=== PATIENT | female | born 1990 | race American Indian/Alaskan Native ===

== ENCOUNTER 2016-06-18 19:39 | Emergency (ER) | payer OTHER, MEDICAID ==
[2016-06-18] MEDS ORDERED: HYDROmorphone 1 MG/ML Syringe IM ONE (19:45)
[2016-06-18 19:47] VITALS: BP 144/83
--- NOTE | 2016-06-18 19:47 | EDM.PDOC ---
ED HPI Trauma - General Stated Complaint: POSSIBLE BROKEN RIGHT FOOT Time Seen by Provider: 06/18/16 19:40 Source: Reports: Patient History Limitations: Reports: No limitations - History of Present Illness INITIAL COMMENTS - FREE TEXT/NARRATIVE: c/o severe pain to right ankle, fell while playing volley ball, obvious deformity. Occurred When: just prior to arrival Occurred Where: other Method of Injury: fall Severity: moderate Allergies/ADRs: Allergies No Known Allergies Allergy (Verified 10/05/13 21:13) Home Medications: Ambulatory Orders . [No Known Home Meds] 06/18/16 [Confirmed 06/18/16] Past Medical History - Past Health History Medical/Surgical History: Denies Medical/Surgical History Social & Family History - Tobacco Use Smoking Status *Q: Former Smoker Years of Tobacco use: 5 Used Tobacco, but Quit: Yes Month Tobacco Last Used: March Hand Smoke Exposure: Yes - Alcohol Use Days Per Week of Alcohol Use: 0 - Recreational Drug Use Recreational Drug Use: No Review of Systems - Review of Systems Review Of Systems: See Below Constitutional: Reports: no symptoms Musculoskeletal: Reports: joint pain (right ankle), joint swelling Trauma Exam - Physical Exam Exam: See Below Exam Limited By: No limitations General Appearance: Reports: alert, moderate distress Head: Reports: atraumatic, normocephalic Ears: Reports: normal external exam Nose: Reports: normal inspection Throat/Mouth: Reports: Normal inspection Neck: Reports: full range of motion Respiratory Exam: Reports: no respiratory distress Cardiovascular: Reports: normal peripheral pulses, regular rate, rhythm Extremities: Reports: pain with movement, tenderness, unable to bear weight, other (lateral ankle swelling pedal pulses present, pain with minimal movement) . Denies: normal range of motion Course - Vital Signs Last Recorded V/S: Last Vital Signs Temp 97.3 F 06/18/16 19:42 Pulse 106 H 06/18/16 19:42 Resp 18 06/18/16 19:42 BP 144/83 H 06/18/16 19:42 Pulse Ox 99 06/18/16 19:42 - Orders/Labs/Meds Meds: Medications Discontinued Medications Generic Name Dose Route Start Last Admin Trade Name Freq PRN Reason Stop Dose Admin Hydromorphone HCl 1 mg 06/18/16 19:45 06/18/16 20:27 Dilaudid IM 06/18/16 19:46 1 mg ONETIME ONE Administration Departure - Departure Time of Disposition: 20:45 Disposition: Home, Self-Care 01 Condition: fair Clinical Impression: Ankle sprain Qualifiers: Encounter type: initial encounter Involved ligament of ankle: unspecified ligament Laterality: right Qualified Code(s): S93.401A - Sprain of unspecified ligament of right ankle, initial encounter Instructions: Ankle Sprain, [id number] Referrals: Alysia Elizondo MD [Primary Care Provider] - Forms: ED Department Discharge Additional Instructions: Rest Ice elevation Cam boot Crutches Weight bearing as tolerated clinic follow up in one week alternate Ibuprofen 600mg with tylenol 650mg every 4 hours as needed
== END 2016-06-18 20:50 | disposition home or self-care (01) ==
LOC: DL.ED 19:39
DX: S93.401A Sprain of unspecified ligament of right ankle, initial encounter (principal); Z87.891 Personal history of nicotine dependence; W19.XXXA Unspecified fall, initial encounter; Y93.68 Activity, volleyball (beach) (court)
CPT/HCPCS: 73610; 96372; 99283; J1170

== ENCOUNTER 2017-02-19 18:30 | Emergency (ER) | payer MEDICAID, OTHER ==
[2017-02-19] MEDS ORDERED: Lidocaine 1% 30 ML SDV INJECT ONE ×2 (19:24→20:23)
[2017-02-19] MEDS ORDERED: Lidocaine/EPINEPHrine/Tetracaine Soln 5 ML Each TOP ONE (19:24)
--- NOTE | 2017-02-19 19:29 | EDM.PDOC ---
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 [No Known Home Meds] 06/18/16 [History] Past Medical History - Past Health History Medical/Surgical History: Denies Medical/Surgical History - Past Surgical History Female Surgical History: Reports: Section Social & Family History - Tobacco Use Smoking Status *Q: Never Smoker Years of Tobacco use: 5 Used Tobacco, but Quit: Yes Month Tobacco Last Used: March Second Hand Smoke Exposure: Yes - Caffeine Use Caffeine Use: Reports: Coffee, Energy Drinks - Alcohol Use Days Per Week of Alcohol Use: 1 Number of Drinks Per Day: 3 Total Drinks Per Week: 3 - Recreational Drug Use Recreational Drug Use: No ED ROS GENERAL - Review of Systems Review Of Systems: ROS reveals no pertinent complaints other than HPI. ED EXAM, SKIN/RASH Exam: See Below Exam Limited By: No Limitations General Appearance: Alert, WD/WN, Mild Distress, Other (upset) Ears: Hearing Grossly Normal Throat/Mouth: Normal Voice, No Airway Compromise Head: Atraumatic Neck: Non-Tender, Full Range of Motion Respiratory/Chest: No Respiratory Distress Cardiovascular: Regular Rate, Rhythm GI/Abdominal: Soft, Non-Tender Extremities: Other (left 4th web of foot 1 1/2" lac, NV wnl, gait limited to pain) Neurological: Alert, Oriented, Normal Cognition, No Motor/Sensory Deficits Psychiatric: Tearful Skin: Warm, Dry, Normal Color Location, Skin: Lower Extremity, Left Lymphatic: No Adenopathy ED SKIN PROCEDURES - Laceration/Wound Repair Left Foot Lac/Wound length In cm: 3 (left foot 4th web) Appearance: Subcutaneous, Linear, Clean Distal NVT: Neuro & Vascular Intact, No Tendon Injury Anesthetic Type: Local Local Anesthesia - Lidocaine (Xylocaine): 1% Plain Skin Prep: Chlorhexidine (Hibiciens) Exploration/Debridement/Repair: Wound Explored, In a Bloodless Field, Minimally Undermined, No Foreign Material Found, Multiple Flaps Aligned Closed with: Sutures Suture Size: 3-0 # of Sutures: 7 Suture Type: Nylon, Interrupted Sterile Dressing Applied: Provider Tetanus Status Addressed: Yes Complications: No Course - Vital Signs Last Recorded V/S: Last Vital Signs Temp 36.7 C 02/19/17 21:46 Pulse 74 02/19/17 21:46 Resp 14 02/19/17 21:46 BP 110/63 02/19/17 21:46 Pulse Ox 95 02/19/17 21:46 - Orders/Labs/Meds Meds: Medications Discontinued Medications Generic Name Dose Route Start Last Admin Trade Name Freq PRN Reason Stop Dose Admin Butorphanol Tartrate 2 mg 02/19/17 20:08 02/19/17 20:14 Stadol IM 02/19/17 20:09 2 mg ONETIME ONE Administration Cefazolin Sodium 1 gm/ Sodium 50 mls @ 100 mls/hr 02/19/17 21:07 02/19/17 21: 17 Chloride IV 02/19/17 21:36 100 mls/hr ONETIME ONE Administration Lidocaine HCl 30 ml 02/19/17 19:24 02/19/17 19:31 Xylocaine-Mpf 1% INJECT 02/19/17 19:25 30 ml ONETIME ONE Administration Lidocaine HCl 30 ml 02/19/17 20:23 02/19/17 20:28 Xylocaine-Mpf 1% INJECT 02/19/17 20:24 30 ml ONETIME ONE Administration Lidocaine/Tetracaine 5 ml 02/19/17 19:24 02/19/17 19:31 Let Soln TOP 02/19/17 19:25 5 ml ONETIME ONE Administration Promethazine HCl 25 mg 02/19/17 20:08 02/19/17 20:12 Phenergan IM 02/19/17 20:09 25 mg ONETIME ONE Administration Departure - Departure Time of Disposition: 21:55 Disposition: Home, Self-Care 01 Condition: Good Clinical Impression: Foot laceration Qualifiers: Encounter type: initial encounter Laterality: left Qualified Code(s): S91.312A - Laceration without foreign body, left foot, initial encounter - Discharge Information Instructions: Stitches, [place], or Adhesive Wound Closure, [id number] Forms: ED Department Discharge Additional Instructions: 1) keep wound clean dry covered 2) elevate foot as much as possible 3) suture removal 10 days 4) wound check Wednesday rx given; keflex 250mg qid x 40 vicodin 5/325mg bid prn x 12
[2017-02-19] MEDS ORDERED: Promethazine 25 MG/ML SDV IM ONE (20:08)
[2017-02-19] MEDS ORDERED: Butorphanol 2 MG/ML SDV IM ONE (20:08)
[2017-02-19] MEDS ORDERED: ceFAZolin 1 GM in Sodium Chloride 0.9% 50 ML IV ONE (21:07)
[2017-02-19 21:48] VITALS: BP 110/63
== END 2017-02-19 21:55 | disposition home or self-care (01) ==
LOC: DL.ED 18:30
DX: S91.312A Laceration without foreign body, left foot, initial encounter (principal); Z87.891 Personal history of nicotine dependence; W22.8XXA Striking against or struck by other objects, initial encounter
CPT/HCPCS: 12002; 96365; 96372; 99283; A9270; J0595; J0690; J2550; J7050

== ENCOUNTER 2017-03-07 01:49 | Emergency (ER) | payer OTHER ==
[2017-03-07] MEDS ORDERED: Bacitracin Oint 1 GM U/D Packet TOP ONE (02:03)
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
[2017-03-07 03:38] VITALS: BP 122/65
== END 2017-03-07 03:13 | disposition home or self-care (01) ==
LOC: DL.ED 01:49
DX: S01.432A Puncture wound without foreign body of left cheek and temporomandibular area, initial encounter (principal); S50.11XA Contusion of right forearm, initial encounter; S50.811A Abrasion of right forearm, initial encounter; Y04.1XXA Assault by human bite, initial encounter; Y92.838 Other recreation area as the place of occurrence of the external cause
CPT/HCPCS: 36415; 99284; G0480

== ENCOUNTER 2017-09-18 03:44 | Emergency (ER) | payer OTHER ==
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
[2017-09-18] MEDS ORDERED: Iopamidol 612 MG/ML 100 ML Bottle IVPUSH ONE (04:00)
[2017-09-18] MEDS ORDERED: LORazepam 2 MG/ML Syringe IVPUSH ONE (04:13)
[2017-09-18 04:17] LABS: CHLORIDE,CL 110 mmol/L (98-109); SODIUM,NA 147 mmol/L (138-146)
== END 2017-09-18 06:17 ==
LOC: DL.ED 03:44
DX: S12.691A Other nondisplaced fracture of seventh cervical vertebra, initial encounter for closed fracture (principal); Z79.899 Other long term (current) drug therapy; V89.2XXA Person injured in unspecified motor-vehicle accident, traffic, initial encounter
CPT/HCPCS: 36415; 70450; 71260; 72125; 74177; 80048; 80305; 81001; 81025; 85025; 96374; 99285; J2060; Q9967

== ENCOUNTER 2018-09-03 05:57 | Emergency (ER) | payer BC, OTHER ==
[2018-09-03 06:09] VITALS: BP 121/59
--- NOTE | 2018-09-03 06:48 | EDM.PDOC ---
ED HPI GENERAL MEDICAL PROBLEM - General Chief Complaint: Abdominal Pain Stated Complaint: SIDE PAIN LAST 3 DAYS [id number] Time Seen by Provider: 09/03/18 06:43 Source of Information: Reports: Patient History Limitations: Reports: No Limitations - History of Present Illness INITIAL COMMENTS - FREE TEXT/NARRATIVE: c/o 3 days h/o right side abd pain with nausea but no V/D. was at clinic yesterday but pain was on left and had US showing cyste and placed on bactrim but not doing much and got fever/chills last night. 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: Musculoskeletal History: Reports: None Neurological History: Reports: None Psychiatric History: Reports: None Endocrine/Metabolic History: Reports: None Hematologic History: Reports: None Immunologic History: Reports: None Oncologic (Cancer) History: Reports: None Dermatologic History: Reports: None - Past Surgical History Female Surgical History: Reports: Section, D&C Social & Family History - Family History Family Medical History: Noncontributory - Tobacco Use Smoking Status *Q: Light Tobacco Smoker Years of Tobacco use: 10 Packs/Tins Daily: 0.5 Second Hand Smoke Exposure: No - Caffeine Use Caffeine Use: Reports: Coffee, Soda - Alcohol Use Days Per Week of Alcohol Use: 1 Number of Drinks Per Day: 1 Total Drinks Per Week: 1 - Recreational Drug Use Recreational Drug Use: No ED ROS GENERAL - Review of Systems Review Of Systems: ROS reveals no pertinent complaints other than HPI. ED EXAM, GI/ABD - Physical Exam Exam: See Below Exam Limited By: No Limitations General Appearance: Alert, WD/WN, Mild Distress, Other (discomfort). No: Active Emesis Ears: Hearing Grossly Normal Throat/Mouth: Normal Voice, No Airway Compromise Head: Atraumatic Neck: Non-Tender, Full Range of Motion Respiratory/Chest: No Respiratory Distress Cardiovascular: Regular Rate, Rhythm GI/Abdominal Exam: Tender, Other (RUQ>side). No: Rigid, Rebound Neurological: Alert, Oriented, Normal Cognition, Normal Gait, No Motor/Sensory Deficits Psychiatric: Flat Affect Skin Exam: Warm, Dry, Normal Color Lymphatic: No Adenopathy Course - Vital Signs Last Recorded V/S: Last Vital Signs Temp 36.5 C 09/03/18 06:04 Pulse 86 09/03/18 06:04 Resp 18 09/03/18 06:04 BP 121/59 L 09/03/18 06:04 Pulse Ox 99 09/03/18 06:04 - Orders/Labs/Meds Orders: Active Orders 24 hr Category Date Time Status Abdomen Pelvis w Cont [CT] Urgent Exams 09/03/18 08:09 Taken CULTURE URINE [RM] Stat Lab 09/03/18 06:15 Received Labs: Laboratory Tests 09/03/18 09/03/18 09/03/18 Range/Units 06:15 06:15 06:15 WBC (5.0-10.0) 10^3/uL RBC (4.2-5.4) 10^6/uL Hgb (12.0-16.0) g/dL Hct (37.0-47.0) % MCV (80-100) fL MCH (27.0-34.0) pg MCHC (33.0-35.0) g/dL Plt Count (150-450) 10^3/uL Neut % (Auto) (42.2-75.2) % Lymph % (Auto) (20.5-50.1) % [place] % (Auto) (2-8) % Eos % (Auto) (1.0-3.0) % Baso % (Auto) (0.0-1.0) % Sodium (135-145) mmol/L Potassium (3.6-5.0) mmol/L Chloride (101-111) mmol/L Carbon Dioxide (21.0-31.0) mmol/L Anion Gap BUN (7-18) mg/dL Creatinine (0.6-1.3) mg/dL Est Cr Clr Drug Dosing mL/min Estimated GFR (MDRD) BUN/Creatinine Ratio Glucose (74-105) mg/dL Calcium (8.4-10.2) mg/dl Total Bilirubin (0.2-1.0) mg/dL AST (10-42) IU/L ALT (10-60) IU/L Alkaline Phosphatase (42-121) IU/L Total Protein (6.7-8.2) g/dl Albumin (3.2-5.5) g/dl Globulin Albumin/Globulin Ratio Amylase (28-100) U/L Lipase (22-51) U/L Urine Color Yellow (YELLOW) Urine Appearance Cloudy (CLEAR) Urine pH 7.0 (5.0-9.0) Ur Specific [place] 1.015 (1.005-1.030) Urine Protein 30 H (NEGATIVE) Urine Glucose (UA) Negative (NEGATIVE) Urine Ketones Negative (NEGATIVE) Urine Occult Blood Small H (NEGATIVE) Urine Nitrite Positive H (NEGATIVE) Urine Bilirubin Negative (NEGATIVE) Urine Urobilinogen 0.2 (0.2-1.0) mg/dL Ur Leukocyte Esterase Large H (NEGATIVE) Urine RBC 20-30 H /HPF Urine WBC >100 H (0-5/HPF) /HPF Ur Epithelial Cells Moderate H (NOT SEEN) /HPF Amorphous Sediment Few (NOT SEEN) /HPF Urine Bacteria Many H (0-FEW/HPF) /HPF Urine Mucus Many H (NOT SEEN) /LPF Urine HCG, Qual Negative Urine Opiates Screen Negative (NEGATIVE) Ur Oxycodone Screen Negative (NEGATIVE) Urine Methadone Screen Negative (NEGATIVE) Ur Barbiturates Screen Negative (NEGATIVE) U Tricyclic Antidepress Negative (NEGATIVE) Ur Phencyclidine Scrn Negative (NEGATIVE) Ur Amphetamine Screen Negative (NEGATIVE) U Methamphetamines Scrn Negative (NEGATIVE) Urine MDMA Screen Negative (NEGATIVE) U Benzodiazepines Scrn Positive H (NEGATIVE) Urine Cocaine Screen Negative (NEGATIVE) U Marijuana (THC) Screen Negative (NEGATIVE) 09/03/18 09/03/18 Range/Units 06:52 06:52 WBC 13.1 H (5.0-10.0) 10^3/uL RBC 4.62 (4.2-5.4) 10^6/uL Hgb 13.2 D (12.0-16.0) g/dL Hct 40.1 (37.0-47.0) % MCV 86.8 (80-100) fL MCH 28.6 (27.0-34.0) pg MCHC 32.9 L (33.0-35.0) g/dL Plt Count 266 (150-450) 10^3/uL Neut % (Auto) 77.2 H (42.2-75.2) % Lymph % (Auto) 14.1 L (20.5-50.1) % [place] % (Auto) 6.9 (2-8) % Eos % (Auto) 1.5 (1.0-3.0) % Baso % (Auto) 0.3 (0.0-1.0) % Sodium 133 L (135-145) mmol/L Potassium 3.9 (3.6-5.0) mmol/L Chloride 106 (101-111) mmol/L Carbon Dioxide 19.0 L (21.0-31.0) mmol/L Anion Gap 11.9 BUN 8 (7-18) mg/dL Creatinine 0.6 (0.6-1.3) mg/dL Est Cr Clr Drug Dosing 111.39 mL/min Estimated GFR (MDRD) > 60 BUN/Creatinine Ratio 13.33 Glucose 102 (74-105) mg/dL Calcium 8.1 L (8.4-10.2) mg/dl Total Bilirubin 0.5 (0.2-1.0) mg/dL AST 18 (10-42) IU/L ALT 15 (10-60) IU/L Alkaline Phosphatase 59 (42-121) IU/L Total Protein 7.0 (6.7-8.2) g/dl Albumin 3.4 (3.2-5.5) g/dl Globulin 3.6 Albumin/Globulin Ratio 0.94 Amylase 45 (28-100) U/L Lipase 23 (22-51) U/L Urine Color (YELLOW) Urine Appearance (CLEAR) Urine pH (5.0-9.0) Ur Specific [place] (1.005-1.030) Urine Protein (NEGATIVE) Urine Glucose (UA) (NEGATIVE) Urine Ketones (NEGATIVE) Urine Occult Blood (NEGATIVE) Urine Nitrite (NEGATIVE) Urine Bilirubin (NEGATIVE) Urine Urobilinogen (0.2-1.0) mg/dL Ur Leukocyte Esterase (NEGATIVE) Urine RBC /HPF Urine WBC (0-5/HPF) /HPF Ur Epithelial Cells (NOT SEEN) /HPF Amorphous Sediment (NOT SEEN) /HPF Urine Bacteria (0-FEW/HPF) /HPF Urine Mucus (NOT SEEN) /LPF Urine HCG, Qual Urine Opiates Screen (NEGATIVE) Ur Oxycodone Screen (NEGATIVE) Urine Methadone Screen (NEGATIVE) Ur Barbiturates Screen (NEGATIVE) U Tricyclic Antidepress (NEGATIVE) Ur Phencyclidine Scrn (NEGATIVE) Ur Amphetamine Screen (NEGATIVE) U Methamphetamines Scrn (NEGATIVE) Urine MDMA Screen (NEGATIVE) U Benzodiazepines Scrn (NEGATIVE) Urine Cocaine Screen (NEGATIVE) U Marijuana (THC) Screen (NEGATIVE) Meds: Medications Discontinued Medications Generic Name Dose Route Start Last Admin Trade Name Freq PRN Reason Stop Dose Admin Hydromorphone HCl 1 mg 09/03/18 09:35 09/03/18 09:39 Dilaudid IVPUSH 09/03/18 09:36 1 mg ONETIME ONE Administration Sodium Chloride 1,000 mls @ 999 mls/hr 09/03/18 07:36 09/03/18 07:57 Normal Saline IV 09/03/18 08:36 999 mls/hr .BOLUS ONE Administration Levofloxacin/Dextrose 500 mg/ 100 mls @ 100 mls/hr 09/03/18 09:45 09/03/18 10 :02 Premix IV 09/03/18 10:44 100 mls/hr ONETIME ONE Administration Sodium Chloride 1,000 mls @ 999 mls/hr 09/03/18 09:48 09/03/18 10:02 Normal Saline IV 09/03/18 10:48 999 mls/hr .BOLUS ONE Administration Iopamidol 75 ml 09/03/18 08:08 09/03/18 08:47 Isovue-300 (61%) IVPUSH 09/03/18 08:09 75 ml ONETIME ONE Administration Morphine Sulfate 2 mg 09/03/18 07:36 09/03/18 07:57 Morphine IVPUSH 09/03/18 07:37 2 mg ONETIME ONE Administration Ondansetron HCl 4 mg 09/03/18 07:36 09/03/18 07:57 Zofran IV 09/03/18 07:37 4 mg ONETIME ONE Administration - Re-Assessments/Exams Free Text/Narrative Re-Assessment/Exam: 09/03/18 09:48 results discussed with pt Departure - Departure Time of Disposition: 11:04 Disposition: Home, Self-Care 01 Condition: Good Clinical Impression: Pyelonephritis - Discharge Information Instructions: Pyelonephritis, Adult, [id number] Forms: ED Department Discharge Additional Instructions: 1) rest 2) drink lots of liquids 3) follow up at clinic 4) recheck if there is any change or concern rx given; cipro 250mg bid x 5 days vicodin 5/325mg bid prn pain x 6 - My Orders Last 24 Hours: My Active Orders 09/03/18 06:15 CULTURE URINE [RM] Stat 09/03/18 08:09 Abdomen Pelvis w Cont [CT] Urgent - Assessment/Plan Last 24 Hours: My Active Orders 09/03/18 06:15 CULTURE URINE [RM] Stat 09/03/18 08:09 Abdomen Pelvis w Cont [CT] Urgent
[2018-09-03 07:28] LABS: ANION GAP 11.9; CHLORIDE,CL 106 mmol/L (101-111); SODIUM,NA 133 mmol/L (135-145)
[2018-09-03] MEDS ORDERED: Ondansetron 4 MG/2 ML SDV IV ONE (07:36)
[2018-09-03] MEDS ORDERED: Sodium Chloride 0.9% 1,000 ML IV ONE ×2 (07:36→09:48)
[2018-09-03] MEDS ORDERED: Morphine 2 MG/ML Syringe IVPUSH ONE (07:36)
[2018-09-03] MEDS ORDERED: Iopamidol 612 MG/ML 75 ML Bottle IVPUSH ONE (08:08)
[2018-09-03] MEDS ORDERED: HYDROmorphone 1 MG/ML Syringe IVPUSH ONE (09:35)
[2018-09-03] MEDS ORDERED: Levofloxacin/Dextrose 5%-Water 500 MG in Premix Bag 1 BAG IV ONE (09:45)
== END 2018-09-03 11:15 | disposition home or self-care (01) ==
LOC: DL.ED 05:57
DX: N12 Tubulo-interstitial nephritis, not specified as acute or chronic (principal); F17.210 Nicotine dependence, cigarettes, uncomplicated; Z79.899 Other long term (current) drug therapy
CPT/HCPCS: 36415; 74177; 80053; 80305; 81001; 81025; 82150; 83690; 85025; 87086; 87088; 87186; 96361; 96365; 96375; 99284; A4217; J1170; J1956; J2270; J2405; J7030; Q9967

== ENCOUNTER 2019-07-19 03:08 | Emergency (ER) | payer BC, MEDICAID, OTHER ==
[2019-07-19 03:15] VITALS: BP 122/82; PULSE 95
[2019-07-19] MEDS ORDERED: HYDROmorphone 1 MG/ML Syringe IVPUSH ONE (03:18)
[2019-07-19] MEDS ORDERED: Sodium Chloride 0.9% 1,000 ML IV ONE (03:18)
[2019-07-19] MEDS ORDERED: Ondansetron 4 MG/2 ML SDV IVPUSH ONE (03:18)
[2019-07-19] MEDS ORDERED: Famotidine 20 MG/2 ML SDV IVPUSH ONE (03:30)
[2019-07-19 03:55] LABS: ANION GAP 13.8 mEq/L (7-13); CHLORIDE,CL 101 mmol/L (98-107); SODIUM,NA 138 mmol/L (136-145)
[2019-07-19] MEDS ORDERED: Iopamidol 612 MG/ML 100 ML Bottle IVPUSH ONE (04:04)
[2019-07-19] MEDS ORDERED: fentaNYL 100 MCG/2 ML SDV IVPUSH ONE ×2 (05:00→05:22)
[2019-07-19] MEDS ORDERED: cefTRIAXone 1 GM in Sodium Chloride 0.9% 50 ML IV ONE (05:00)
[2019-07-19] MEDS ORDERED: Piperacillin/Tazobactam 3.375 GM in Sodium Chloride 0.9% 100 ML IV ONE (05:15)
--- NOTE | 2019-07-19 05:23 | EDM.PDOC ---
"ED HPI GENERAL MEDICAL PROBLEM - General Chief Complaint: Abdominal Pain Stated Complaint: ABD PAIN Time Seen by Provider: 07/19/19 03:15 Source of Information: Reports: Patient History Limitations: Reports: No Limitations - History of Present Illness INITIAL COMMENTS - FREE TEXT/NARRATIVE: ED with c/o abdominal pain waking her at 230. Pain sharp constant. Nausea no vomiting. Small BM today. Denies fever chills or cough. No SOB. No injury. Denies risk due to hormonal implants. 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: Musculoskeletal History: Reports: None Neurological History: Reports: None Psychiatric History: Reports: None Endocrine/Metabolic History: Reports: None Hematologic History: Reports: None Immunologic History: Reports: None Oncologic (Cancer) History: Reports: None Dermatologic History: Reports: None - Past Surgical History Female Surgical History: Reports: Section, D&C Social & Family History - Family History Family Medical History: Noncontributory - Tobacco Use Smoking Status *Q: Current Every Day Smoker Years of Tobacco use: 5 Packs/Tins Daily: 0.5 - Caffeine Use Caffeine Use: Reports: Coffee, Energy Drinks - Recreational Drug Use Recreational Drug Use: No ED ROS GENERAL - Review of Systems Review Of Systems: Comprehensive ROS is negative, except as noted in HPI. ED EXAM, GI/ABD - Physical Exam Exam: See Below Exam Limited By: No Limitations General Appearance: Alert, Moderate Distress Eyes: Bilateral: EOMI Ears: Normal External Exam Nose: Normal Inspection Throat/Mouth: Normal Inspection Head: Atraumatic, Normocephalic Neck: Normal Inspection Respiratory/Chest: No Respiratory Distress Cardiovascular: Normal Peripheral Pulses, Regular Rate, Rhythm GI/Abdominal Exam: Tender (greater upper mid,mild RLQ ), Abnormal Bowel Sounds ( hypoactive). No: Distended, Guarding, Rebound Back Exam: Normal Inspection Extremities: Normal Inspection Neurological: Alert, Oriented, Normal Cognition Psychiatric: Normal Affect Skin Exam: Warm, Dry, Intact, Normal Color, Tattoo(s) Course - Vital Signs Last Recorded V/S: Last Vital Signs Temp 96.8 F L 07/19/19 03:13 Pulse 95 07/19/19 03:13 Resp 24 H 07/19/19 03:13 BP 122/82 07/19/19 03:13 Pulse Ox 100 07/19/19 03:13 - Orders/Labs/Meds Orders: Active Orders 24 hr Category Date Time Status Abdomen Pelvis w Cont [CT] Urgent Exams 07/19/19 04:04 Taken CXR [Chest 2V] [CR] Urgent Exams 07/19/19 05:56 Stop Req CULTURE BLOOD [BC] Stat Lab 07/19/19 03:24 Received CULTURE URINE [RM] Stat Lab 07/19/19 03:17 Received Labs: Laboratory Tests 07/19/19 07/19/19 07/19/19 Range/Units 03:17 03:24 03:24 WBC 9.6 (5.0-10.0) 10^3/uL RBC 4.77 (4.2-5.4) 10^6/uL Hgb 14.1 (12.0-16.0) g/dL Hct 41.5 (37.0-47.0) % MCV 87.0 (80-100) fL MCH 29.6 (27.0-34.0) pg MCHC 34.0 (33.0-35.0) g/dL Plt Count 296 (150-450) 10^3/uL Neut % (Auto) 58.3 (42.2-75.2) % Lymph % (Auto) 33.1 (20.5-50.1) % [place] % (Auto) 6.2 (2-8) % Eos % (Auto) 1.9 (1.0-3.0) % Baso % (Auto) 0.5 (0.0-1.0) % Sodium 138 (136-145) mmol/L Potassium 3.8 (3.5-5.1) mmol/L Chloride 101 (98-107) mmol/L Carbon Dioxide 27 (21-32) mmol/L Anion Gap 13.8 H (7-13) mEq/L BUN 13 (7-18) mg/dL Creatinine 0.74 (0.55-1.02) mg/dL Est Cr Clr Drug Dosing 89.52 mL/min Estimated GFR (MDRD) > 60 BUN/Creatinine Ratio 17.6 (No establ ref range) Glucose 102 H (74-99) mg/dL Lactic Acid (0.4-2.0) mmol/L Calcium 9.0 (8.5-10.1) mg/dL Total Bilirubin 0.2 (0.2-1.0) mg/dL AST 19 (15-37) U/L ALT 39 (14-59) U/L Alkaline Phosphatase 125 H (46-116) U/L Total Protein 7.7 (6.4-8.2) g/dL Albumin 3.8 (3.4-5.0) g/dL Globulin 3.9 Albumin/Globulin Ratio 1.0 Amylase 48 (25-115) U/L Lipase 78 (73-393) U/L HCG, Qual Negative Urine Color Yellow (YELLOW) Urine Appearance Slightly cloudy (CLEAR) Urine pH 7.0 (5.0-9.0) Ur Specific [place] >= 1.030 (1.005-1.030) Urine Protein Negative (NEGATIVE) Urine Glucose (UA) Negative (NEGATIVE) Urine Ketones Negative (NEGATIVE) Urine Occult Blood Trace-lysed H (NEGATIVE) Urine Nitrite Negative (NEGATIVE) Urine Bilirubin Negative (NEGATIVE) Urine Urobilinogen 0.2 (0.2-1.0) mg/dL Ur Leukocyte Esterase Small H (NEGATIVE) Urine RBC 0-5 /HPF Urine WBC 5-10 H (0-5/HPF) /HPF Ur Epithelial Cells Moderate H (NOT SEEN) /HPF Amorphous Sediment Few (NOT SEEN) /HPF Urine Bacteria Few (0-FEW/HPF) /HPF Urine Mucus Few H (NOT SEEN) /LPF Urine Opiates Screen (NEGATIVE) Ur Oxycodone Screen (NEGATIVE) Urine Methadone Screen (NEGATIVE) Ur Barbiturates Screen (NEGATIVE) U Tricyclic Antidepress (NEGATIVE) Ur Phencyclidine Scrn (NEGATIVE) Ur Amphetamine Screen (NEGATIVE) U Methamphetamines Scrn (NEGATIVE) Urine MDMA Screen (NEGATIVE) U Benzodiazepines Scrn (NEGATIVE) Urine Cocaine Screen (NEGATIVE) U Marijuana (THC) Screen (NEGATIVE) 07/19/19 07/19/19 Range/Units 03:24 03:46 WBC (5.0-10.0) 10^3/uL RBC (4.2-5.4) 10^6/uL Hgb (12.0-16.0) g/dL Hct (37.0-47.0) % MCV (80-100) fL MCH (27.0-34.0) pg MCHC (33.0-35.0) g/dL Plt Count (150-450) 10^3/uL Neut % (Auto) (42.2-75.2) % Lymph % (Auto) (20.5-50.1) % [place] % (Auto) (2-8) % Eos % (Auto) (1.0-3.0) % Baso % (Auto) (0.0-1.0) % Sodium (136-145) mmol/L Potassium (3.5-5.1) mmol/L Chloride (98-107) mmol/L Carbon Dioxide (21-32) mmol/L Anion Gap (7-13) mEq/L BUN (7-18) mg/dL Creatinine (0.55-1.02) mg/dL Est Cr Clr Drug Dosing mL/min Estimated GFR (MDRD) BUN/Creatinine Ratio (No establ ref range) Glucose (74-99) mg/dL Lactic Acid 0.5 (0.4-2.0) mmol/L Calcium (8.5-10.1) mg/dL Total Bilirubin (0.2-1.0) mg/dL AST (15-37) U/L ALT (14-59) U/L Alkaline Phosphatase (46-116) U/L Total Protein (6.4-8.2) g/dL Albumin (3.4-5.0) g/dL Globulin Albumin/Globulin Ratio Amylase (25-115) U/L Lipase (73-393) U/L HCG, Qual Urine Color (YELLOW) Urine Appearance (CLEAR) Urine pH (5.0-9.0) Ur Specific [place] (1.005-1.030) Urine Protein (NEGATIVE) Urine Glucose (UA) (NEGATIVE) Urine Ketones (NEGATIVE) Urine Occult Blood (NEGATIVE) Urine Nitrite (NEGATIVE) Urine Bilirubin (NEGATIVE) Urine Urobilinogen (0.2-1.0) mg/dL Ur Leukocyte Esterase (NEGATIVE) Urine RBC /HPF Urine WBC (0-5/HPF) /HPF Ur Epithelial Cells (NOT SEEN) /HPF Amorphous Sediment (NOT SEEN) /HPF Urine Bacteria (0-FEW/HPF) /HPF Urine Mucus (NOT SEEN) /LPF Urine Opiates Screen Positive H (NEGATIVE) Ur Oxycodone Screen Negative (NEGATIVE) Urine Methadone Screen Negative (NEGATIVE) Ur Barbiturates Screen Negative (NEGATIVE) U Tricyclic Antidepress Negative (NEGATIVE) Ur Phencyclidine Scrn Negative (NEGATIVE) Ur Amphetamine Screen Negative (NEGATIVE) U Methamphetamines Scrn Negative (NEGATIVE) Urine MDMA Screen Negative (NEGATIVE) U Benzodiazepines Scrn Negative (NEGATIVE) Urine Cocaine Screen Negative (NEGATIVE) U Marijuana (THC) Screen Negative (NEGATIVE) Meds: Medications Discontinued Medications Generic Name Dose Route Start Last Admin Trade Name Freq PRN Reason Stop Dose Admin Famotidine 20 mg 07/19/19 03:30 07/19/19 03:35 Pepcid IVPUSH 07/19/19 03:31 20 mg ONETIME ONE Administration Fentanyl 25 mcg 07/19/19 05:00 07/19/19 05:11 Sublimaze IVPUSH 07/19/19 05:01 25 mcg ONETIME ONE Administration Fentanyl 50 mcg 07/19/19 05:22 Sublimaze IVPUSH 07/19/19 05:23 ONETIME ONE Hydromorphone HCl 1 mg 07/19/19 03:18 07/19/19 03:30 Dilaudid IVPUSH 07/19/19 03:19 1 mg ONETIME ONE Administration Sodium Chloride 1,000 mls @ 999 mls/hr 07/19/19 03:18 07/19/19 03:29 Normal Saline IV 07/19/19 04:18 999 mls/hr .BOLUS ONE Administration Ceftriaxone Sodium 1 gm/ 50 mls @ 100 mls/hr 07/19/19 05:00 07/19/19 05:27 Sodium Chloride IV 07/19/19 05:29 Not Given ONETIME ONE Piperacillin Sod/Tazobactam 100 mls @ 200 mls/hr 07/19/19 05:15 07/19/19 05: 26 Sod 3.375 gm/ Sodium Chloride IV 07/19/19 05:44 200 mls/hr ONETIME ONE Administration Iopamidol 100 ml 07/19/19 04:04 07/19/19 04:54 Isovue-300 (61%) IVPUSH 07/19/19 04:05 75 ml ONETIME ONE Administration Ondansetron HCl 4 mg 07/19/19 03:18 07/19/19 03:29 Zofran IVPUSH 07/19/19 03:19 4 mg ONETIME ONE Administration - Radiology Interpretation Free Text/Narrative:: [facility] [place] [facility] Final Radiology Report Call: [phone] assistance Online chat: [email or web address] Name: ALLEN JARA Age: 29Years F Date: 07/19/2019 SSN: -- : [id number] Study: CT ABDOMEN/PELVIS W Requesting Physician: ELLA JORDAN Images: [id number] Addl Studies: Provided Clinical History: Contrast: With Contrast Medium: Isovue 300 Contrast Amount: 75 mL Contrast Method: LAC Page 1 of 2 PROCEDURE INFORMATION: Exam: CT Abdomen And Pelvis With Contrast Exam date and time: 07/19/2019 4:44 AM Age: 29 years old Clinical indication: Abdominal pain; Generalized TECHNIQUE: Imaging protocol: Computed tomography of the abdomen and pelvis with intravenous contrast. Radiation optimization: All CT scans at this facility use at least one of these dose optimization techniques: automated exposure control; mA and/or kV adjustment per patient size (includes targeted exams where dose is matched to clinical indication); or iterative reconstruction. Contrast material: ISOVUE 300; Contrast volume: 75 ml; Contrast route: LAC; COMPARISON: CT Abdomen Pelvis w Cont 09/03/2018 8:21 AM FINDINGS: Liver: Normal. No mass. Gallbladder and bile ducts: Normal. No calcified stones. No ductal dilation. Pancreas: Normal. No ductal dilation. Spleen: Normal. No splenomegaly. Adrenals: Normal. No mass. Kidneys and ureters: Normal. No hydronephrosis. Stomach and bowel: Unremarkable. No obstruction. No mucosal thickening. Appendix: Appendix is dilated measuring up to 9 mm, thickened and inflamed, fluid-filled, with appendicoliths and mild periappendiceal mesenteric fat stranding. There is no periappendiceal abscess or evidence of contained perforation. Intraperitoneal space: Unremarkable. No free air. No significant fluid collection. Vasculature: Unremarkable. No abdominal aortic aneurysm. ALLEN JARA | Final Radiology Report CONFIDENTIALITY STATEMENT This report is intended only for use by the referring physician, and only in accordance with law. If you received this in error, call [phone]. Page 2 of 2 Lymph nodes: Unremarkable. No enlarged lymph nodes. Bladder: Incomplete urinary bladder distention with prominent wall. Reproductive: 3.1 cm RIGHT adnexal cystic lesion. Bones/joints: Unremarkable. No acute fracture. Soft tissues: There is a small fat-containing umbilical hernia. IMPRESSION: 1. Findings consistent with acute appendicitis without perforation or abscess. 2. 3.1 cm RIGHT adnexal cystic lesion. Further evaluation with pelvic ultrasound can be obtained as clinically indicated. 3. Incomplete urinary bladder distention with prominent wall. Correlation with urinalysis for cystitis. Thank you for allowing us to participate in the care of your patient. Dictated and Authenticated by: Marcy Gonzalez MD 07/19/2019 5:04 AM Central Time ([place] & [place]) - Re-Assessments/Exams Free Text/Narrative Re-Assessment/Exam: 07/19/19 05:26 Dr Roman accepting patient. Tx Vi LRAS. Departure - Departure Time of Disposition: 05:27 Disposition: Home, Self-Care 01 Condition: Good Clinical Impression: Adnexal cyst Appendicitis Qualifiers: Appendicitis type: acute appendicitis Acute appendicitis type: unspecified acute appendicitis type Qualified Code(s): K35.80 - Unspecified acute appendicitis UTI (urinary tract infection) Qualifiers: Urinary tract infection type: acute cystitis Hematuria presence: without hematuria Qualified Code(s): N30.00 - Acute cystitis without hematuria - Discharge Information *PRESCRIPTION DRUG MONITORING PROGRAM REVIEWED*: No *COPY OF PRESCRIPTION DRUG MONITORING REPORT IN PATIENT [place]: No Forms: ED Department Discharge Sepsis Event Note - Evaluation Sepsis Screening Result: No Definite Risk - Focused Exam Vital Signs: Vital Signs Temp Pulse Resp BP Pulse Ox 07/19/19 03:13 96.8 F L 95 24 H 122/82 100 Date Exam was Performed: 07/19/19 Time Exam was Performed: 06:20 - My Orders Last 24 Hours: My Active Orders 07/19/19 03:17 CULTURE URINE [RM] Stat 07/19/19 03:24 CULTURE BLOOD [BC] Stat 07/19/19 04:04 Abdomen Pelvis w Cont [CT] Urgent 07/19/19 05:56 CXR [Chest 2V] [CR] Urgent - Assessment/Plan Last 24 Hours: My Active Orders 07/19/19 03:17 CULTURE URINE [RM] Stat 07/19/19 03:24 CULTURE BLOOD [BC] Stat 07/19/19 04:04 Abdomen Pelvis w Cont [CT] Urgent 07/19/19 05:56 CXR [Chest 2V] [CR] Urgent"
== END 2019-07-19 05:59 | disposition home or self-care (01) ==
LOC: DL.ED 03:08
DX: K35.80 Unspecified acute appendicitis (principal); N30.00 Acute cystitis without hematuria; N83.8 Other noninflammatory disorders of ovary, fallopian tube and broad ligament; F17.210 Nicotine dependence, cigarettes, uncomplicated
CPT/HCPCS: 36415; 74177; 80053; 80305; 81001; 82150; 83605; 83690; 84703; 85025; 87040; 87086; 96361; 96365; 96375; 99284; J1170; J2405; J2543; J3010; J3490; J7030; J7050; Q9967

== ENCOUNTER 2021-02-10 01:18 | Inpatient (IN) | payer BC, OTHER ==
[2021-02-10] MEDS ORDERED: LORazepam 2 MG/ML SDV IVPUSH ONE ×2 (01:33→01:55)
[2021-02-10 02:06] LABS: ANION GAP 6.2 mEq/L (7-13); CHLORIDE,CL 100 mmol/L (98-107); SODIUM,NA 122 mmol/L (136-145)
[2021-02-10] MEDS ORDERED: Sodium Chloride 0.9% 1,000 ML IV ONE (02:11)
--- NOTE | 2021-02-10 02:11 | EDM.PDOC ---
ED HPI GENERAL MEDICAL PROBLEM - General Chief Complaint: Behavioral/Psych Stated Complaint: TIGHTNESS IN CHEST, NUMB Time Seen by Provider: 02/10/21 01:30 Source of Information: Reports: Patient, RN, RN Notes Reviewed History Limitations: Reports: Respiratory Distress, Other (hyperventilating) - History of Present Illness INITIAL COMMENTS - FREE TEXT/NARRATIVE: Pt is a 30 year old female who presents to the ER with c/o being unable to breathe and chest tightness. Patient states she was awake and watching TV when she suddenly felt she was unable to breathe at about midnight. Patient states she has developed chest pains as well, pointing to the left anterior chest and under the left axillary. Patient states her son has had covid and was released from quarantine this past week. Patient states she had an episode similar to this on Wednesday when she called the [place] Covid Response team who then came out and tested her, she states this test was negative. Patient denies any recent illness as well as denies fever, chills, cough. Denies any recent N/V/D. Patient states she has had anxiety in the past, but nothing this severe. Patient admits to losing taste and smell on Wednesday. Onset: Today, Sudden Location: Reports: Chest Quality: Reports: Sharp Severity: Moderate Improves with: Reports: None Worsens with: Reports: None Associated Symptoms: Reports: Other (hyperventilating, severe anxiety) Chest Pain Score (Numeric/FACES): 10 - Related Data Allergies Allergy/AdvReac Type Severity Reaction Status Date / Time No Known Allergies Allergy Verified 02/10/21 01:24 Home Meds: Home Meds . 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: Musculoskeletal History: Reports: None Neurological History: Reports: None Psychiatric History: Reports: None Endocrine/Metabolic History: Reports: None Hematologic History: Reports: None Immunologic History: Reports: None Oncologic (Cancer) History: Reports: None Dermatologic History: Reports: None - Past Surgical History Female Surgical History: Reports: Section, D&C Social & Family History - Family History Family Medical History: No Pertinent Family History - Tobacco Use Tobacco Use Status *Q: Current Every Day Tobacco User Years of Tobacco use: 10 Packs/Tins Daily: 0.1 - Caffeine Use Caffeine Use: Reports: Coffee, Energy Drinks, Soda - Recreational Drug Use Recreational Drug Use: No ED ROS GENERAL - Review of Systems Review Of Systems: Comprehensive ROS is negative, except as noted in HPI. ED EXAM, GENERAL - Physical Exam Exam: See Below Exam Limited By: Respiratory Distress (hyperventilating) General Appearance: Alert, WD/WN, Anxious, Moderate Distress Eye Exam: Bilateral Eye: EOMI, Normal Inspection Ears: Normal External Exam, Hearing Grossly Normal Nose: Normal Inspection Throat/Mouth: Normal Inspection, Normal Voice, No Airway Compromise Head: Atraumatic, Normocephalic Neck: Normal Inspection, Supple, Non-Tender, Full Range of Motion Respiratory/Chest: No Respiratory Distress, Lungs Clear, Normal Breath Sounds, No Accessory Muscle Use, Chest Non-Tender Cardiovascular: Normal Peripheral Pulses, Regular Rate, Rhythm, No Edema, No Gallop, No JVD, No Murmur, No Rub Peripheral Pulses: 2+: Radial (L), Radial (R) GI/Abdominal: Normal Bowel Sounds, Soft, Non-Tender (Female) Exam: Deferred Rectal (Female) Exam: Deferred Back Exam: Normal Inspection, Full Range of Motion, NT Extremities: Normal Inspection, Normal Range of Motion, Non-Tender, Normal Capillary Refill, No Pedal Edema Neurological: Alert, Oriented, CN II-XII Intact, Normal Cognition, Normal Gait, Normal Reflexes, No Motor/Sensory Deficits Psychiatric: Anxious, Tearful Skin Exam: Warm, Dry, Intact, Normal Color, No Rash Lymphatic: No Adenopathy #1 Interpretation EKG Date: 02/10/21 Time: 01:42 Rhythm: NSR Rate (Beats/Min): 77 [place]: Normal P-Wave: Present QRS: Normal ST-T: Normal QT: Normal Comparison: NA - No Prior EKG Course - Vital Signs Last Recorded V/S: Last Vital Signs Temp 98.7 F 02/10/21 01:24 Pulse 81 02/10/21 01:24 Resp 32 H 02/10/21 01:24 BP 130/89 02/10/21 01:24 Pulse Ox 100 02/10/21 01:24 - Orders/Labs/Meds Orders: Active Orders 24 hr Category Date Time Status Admission Diagnosis [ADT] Stat ADT 02/10/21 03:11 Ordered Admission Status [Patient Status] [ADT] Routine ADT 02/10/21 03:11 Ordered Chest 1V Frontal [CR] Stat Exams 02/10/21 02:41 Taken CULTURE URINE [RM] Stat Lab 02/10/21 02:23 Received cefTRIAXone [Rocephin] 1 gm Med 02/10/21 03:10 Ordered Sodium Chloride 0.9% [Normal Saline AdvBag] 50 ml IV ONETIME Medication Orders Ceftriaxone Sodium 1 gm/ (Sodium Chloride) 50 mls @ 100 mls/hr IV ONETIME ONE Stop: 02/10/21 03:39 Labs: Laboratory Tests 02/10/21 02/10/21 02/10/21 Range/Units 01:35 01:35 01:35 WBC 5.2 (5.0-10.0) 10^3/uL RBC 4.50 (4.2-5.4) 10^6/uL Hgb 13.1 (12.0-16.0) g/dL Hct 38.9 (37.0-47.0) % MCV 86.4 (80-100) fL MCH 29.1 (27.0-34.0) pg MCHC 33.7 (33.0-35.0) g/dL Plt Count 294 (150-450) 10^3/uL Neut % (Auto) 29.6 L (42.2-75.2) % Lymph % (Auto) 57.1 H (20.5-50.1) % [place] % (Auto) 9.2 H (2-8) % Eos % (Auto) 3.1 H (1.0-3.0) % Baso % (Auto) 1.0 (0.0-1.0) % PT 9.0 (9.0-12.0) SEC INR 0.9 (0.9-1.2) D-Dimer, Quantitative (0-400) ng/mL Sodium 122 L D (136-145) mmol/L Potassium 3.2 L (3.5-5.1) mmol/L Chloride 100 (98-107) mmol/L Carbon Dioxide 19 L (21-32) mmol/L Anion Gap 6.2 L (7-13) mEq/L BUN 8 (7-18) mg/dL Creatinine 0.70 (0.55-1.02) mg/dL Est Cr Clr Drug Dosing 93.79 mL/min Estimated GFR (MDRD) > 60 BUN/Creatinine Ratio 11.4 (No establ ref range) Glucose 100 H (70-99) mg/dL Calcium 8.8 (8.5-10.1) mg/dL Total Bilirubin 0.2 (0.2-1.0) mg/dL AST 19 (15-37) U/L ALT 33 (14-59) U/L Alkaline Phosphatase 129 H (46-116) U/L Troponin I High Sens < 4 (<=51) pg/mL C-Reactive Protein 2.2 H (0.0-0.9) mg/dL Total Protein 7.4 (6.4-8.2) g/dL Albumin 3.4 (3.4-5.0) g/dL Globulin 4.0 Albumin/Globulin Ratio 0.9 Urine Color (YELLOW) Urine Appearance (CLEAR) Urine pH (5.0-9.0) Ur Specific [place] (1.005-1.030) Urine Protein (NEGATIVE) Urine Glucose (UA) (NEGATIVE) Urine Ketones (NEGATIVE) Urine Occult Blood (NEGATIVE) Urine Nitrite (NEGATIVE) Urine Bilirubin (NEGATIVE) Urine Urobilinogen (0.2-1.0) mg/dL Ur Leukocyte Esterase (NEGATIVE) Urine RBC (0-5) /HPF Urine WBC (0-5/HPF) /HPF Ur Epithelial Cells (NOT SEEN) /HPF Amorphous Sediment (NOT SEEN) /HPF Urine Bacteria (0-FEW/HPF) /HPF Urine HCG, Qual Urine Opiates Screen (NEGATIVE) Ur Oxycodone Screen (NEGATIVE) Urine Methadone Screen (NEGATIVE) Ur Barbiturates Screen (NEGATIVE) U Tricyclic Antidepress (NEGATIVE) Ur Phencyclidine Scrn (NEGATIVE) Ur Amphetamine Screen (NEGATIVE) U Methamphetamines Scrn (NEGATIVE) Urine MDMA Screen (NEGATIVE) U Benzodiazepines Scrn (NEGATIVE) Urine Cocaine Screen (NEGATIVE) U Marijuana (THC) Screen (NEGATIVE) Ethyl Alcohol 0 (0) mg/dL SARS-CoV-2 RNA (CARMELA) (NEGATIVE) 02/10/21 02/10/21 02/10/21 Range/Units 01:35 01:45 02:23 WBC (5.0-10.0) 10^3/uL RBC (4.2-5.4) 10^6/uL Hgb (12.0-16.0) g/dL Hct (37.0-47.0) % MCV (80-100) fL MCH (27.0-34.0) pg MCHC (33.0-35.0) g/dL Plt Count (150-450) 10^3/uL Neut % (Auto) (42.2-75.2) % Lymph % (Auto) (20.5-50.1) % [place] % (Auto) (2-8) % Eos % (Auto) (1.0-3.0) % Baso % (Auto) (0.0-1.0) % PT (9.0-12.0) SEC INR (0.9-1.2) D-Dimer, Quantitative 154 (0-400) ng/mL Sodium (136-145) mmol/L Potassium (3.5-5.1) mmol/L Chloride (98-107) mmol/L Carbon Dioxide (21-32) mmol/L Anion Gap (7-13) mEq/L BUN (7-18) mg/dL Creatinine (0.55-1.02) mg/dL Est Cr Clr Drug Dosing mL/min Estimated GFR (MDRD) BUN/Creatinine Ratio (No establ ref range) Glucose (70-99) mg/dL Calcium (8.5-10.1) mg/dL Total Bilirubin (0.2-1.0) mg/dL AST (15-37) U/L ALT (14-59) U/L Alkaline Phosphatase (46-116) U/L Troponin I High Sens (<=51) pg/mL C-Reactive Protein (0.0-0.9) mg/dL Total Protein (6.4-8.2) g/dL Albumin (3.4-5.0) g/dL Globulin Albumin/Globulin Ratio Urine Color (YELLOW) Urine Appearance (CLEAR) Urine pH (5.0-9.0) Ur Specific [place] (1.005-1.030) Urine Protein (NEGATIVE) Urine Glucose (UA) (NEGATIVE) Urine Ketones (NEGATIVE) Urine Occult Blood (NEGATIVE) Urine Nitrite (NEGATIVE) Urine Bilirubin (NEGATIVE) Urine Urobilinogen (0.2-1.0) mg/dL Ur Leukocyte Esterase (NEGATIVE) Urine RBC (0-5) /HPF Urine WBC (0-5/HPF) /HPF Ur Epithelial Cells (NOT SEEN) /HPF Amorphous Sediment (NOT SEEN) /HPF Urine Bacteria (0-FEW/HPF) /HPF Urine HCG, Qual Negative Urine Opiates Screen (NEGATIVE) Ur Oxycodone Screen (NEGATIVE) Urine Methadone Screen (NEGATIVE) Ur Barbiturates Screen (NEGATIVE) U Tricyclic Antidepress (NEGATIVE) Ur Phencyclidine Scrn (NEGATIVE) Ur Amphetamine Screen (NEGATIVE) U Methamphetamines Scrn (NEGATIVE) Urine MDMA Screen (NEGATIVE) U Benzodiazepines Scrn (NEGATIVE) Urine Cocaine Screen (NEGATIVE) U Marijuana (THC) Screen (NEGATIVE) Ethyl Alcohol (0) mg/dL SARS-CoV-2 RNA (CARMELA) Positive H (NEGATIVE) 02/10/21 02/10/21 Range/Units 02:23 02:23 WBC (5.0-10.0) 10^3/uL RBC (4.2-5.4) 10^6/uL Hgb (12.0-16.0) g/dL Hct (37.0-47.0) % MCV (80-100) fL MCH (27.0-34.0) pg MCHC (33.0-35.0) g/dL Plt Count (150-450) 10^3/uL Neut % (Auto) (42.2-75.2) % Lymph % (Auto) (20.5-50.1) % [place] % (Auto) (2-8) % Eos % (Auto) (1.0-3.0) % Baso % (Auto) (0.0-1.0) % PT (9.0-12.0) SEC INR (0.9-1.2) D-Dimer, Quantitative (0-400) ng/mL Sodium (136-145) mmol/L Potassium (3.5-5.1) mmol/L Chloride (98-107) mmol/L Carbon Dioxide (21-32) mmol/L Anion Gap (7-13) mEq/L BUN (7-18) mg/dL Creatinine (0.55-1.02) mg/dL Est Cr Clr Drug Dosing mL/min Estimated GFR (MDRD) BUN/Creatinine Ratio (No establ ref range) Glucose (70-99) mg/dL Calcium (8.5-10.1) mg/dL Total Bilirubin (0.2-1.0) mg/dL AST (15-37) U/L ALT (14-59) U/L Alkaline Phosphatase (46-116) U/L Troponin I High Sens (<=51) pg/mL C-Reactive Protein (0.0-0.9) mg/dL Total Protein (6.4-8.2) g/dL Albumin (3.4-5.0) g/dL Globulin Albumin/Globulin Ratio Urine Color Yellow (YELLOW) Urine Appearance Cloudy (CLEAR) Urine pH 7.5 (5.0-9.0) Ur Specific [place] 1.020 (1.005-1.030) Urine Protein Negative (NEGATIVE) Urine Glucose (UA) Negative (NEGATIVE) Urine Ketones Negative (NEGATIVE) Urine Occult Blood Negative (NEGATIVE) Urine Nitrite Positive H (NEGATIVE) Urine Bilirubin Negative (NEGATIVE) Urine Urobilinogen 0.2 (0.2-1.0) mg/dL Ur Leukocyte Esterase Negative (NEGATIVE) Urine RBC Not seen (0-5) /HPF Urine WBC 0-5 (0-5/HPF) /HPF Ur Epithelial Cells Moderate H (NOT SEEN) /HPF Amorphous Sediment Many H (NOT SEEN) /HPF Urine Bacteria Many H (0-FEW/HPF) /HPF Urine HCG, Qual Urine Opiates Screen Negative (NEGATIVE) Ur Oxycodone Screen Negative (NEGATIVE) Urine Methadone Screen Negative (NEGATIVE) Ur Barbiturates Screen Negative (NEGATIVE) U Tricyclic Antidepress Negative (NEGATIVE) Ur Phencyclidine Scrn Negative (NEGATIVE) Ur Amphetamine Screen Negative (NEGATIVE) U Methamphetamines Scrn Negative (NEGATIVE) Urine MDMA Screen Negative (NEGATIVE) U Benzodiazepines Scrn Negative (NEGATIVE) Urine Cocaine Screen Negative (NEGATIVE) U Marijuana (THC) Screen Negative (NEGATIVE) Ethyl Alcohol (0) mg/dL SARS-CoV-2 RNA (CARMELA) (NEGATIVE) Meds: Medications Generic Name Dose Route Start Last Admin Trade Name Freq PRN Reason Stop Dose Admin Ceftriaxone Sodium 1 gm/ 50 mls @ 100 mls/hr 02/10/21 03:10 Sodium Chloride IV 02/10/21 03:39 ONETIME ONE Discontinued Medications Generic Name Dose Route Start Last Admin Trade Name Freq PRN Reason Stop Dose Admin Sodium Chloride 1,000 mls @ 999 mls/hr 02/10/21 02:11 02/10/21 02:29 Normal Saline IV 02/10/21 03:11 999 mls/hr .BOLUS ONE Administration Lorazepam 0.5 mg 02/10/21 01:33 02/10/21 01:39 Lorazepam 2 Mg/Ml Sdv IVPUSH 02/10/21 01:34 0.5 mg ONETIME ONE Administration Lorazepam 0.5 mg 02/10/21 01:55 02/10/21 02:08 Lorazepam 2 Mg/Ml Sdv IVPUSH 02/10/21 01:56 0.5 mg ONETIME ONE Administration Potassium Chloride 40 meq 02/10/21 03:10 Potassium Chloride 10 Meq Tab.Er PO 02/10/21 03:11 ONETIME ONE - Radiology Interpretation Free Text/Narrative:: Chest xray: See rad report - Re-Assessments/Exams Free Text/Narrative Re-Assessment/Exam: 02/10/21 03:13 Discussed patient case with Dr. Adorno who agreed to accept the patient for inpatient admission. Departure - Departure Time of Disposition: 03:13 Disposition: Admitted As Inpatient 67 Condition: Fair Clinical Impression: Hyponatremia, COVID-19, Anxiety UTI (urinary tract infection) Qualifiers: Urinary tract infection type: acute cystitis Hematuria presence: without hematuria Qualified Code(s): N30.00 - Acute cystitis without hematuria - Discharge Information *PRESCRIPTION DRUG MONITORING PROGRAM REVIEWED*: No *COPY OF PRESCRIPTION DRUG MONITORING REPORT IN PATIENT [place]: No Forms: ED Department Discharge Sepsis Event Note (ED) - Evaluation Sepsis Screening Result: No Definite Risk - Focused Exam Vital Signs: Vital Signs Temp Pulse Resp BP Pulse Ox 02/10/21 01:24 98.7 F 81 32 H 130/89 100 - My Orders Last 24 Hours: My Active Orders 02/10/21 02:23 CULTURE URINE [RM] Stat 02/10/21 02:41 Chest 1V Frontal [CR] Stat 02/10/21 03:10 cefTRIAXone [Rocephin] 1 gm Sodium Chloride 0.9% [Normal Saline AdvBag] 50 ml IV ONETIME 02/10/21 03:11 Admission Diagnosis [ADT] Stat Admission Status [Patient Status] [ADT] Routine - Assessment/Plan Last 24 Hours: My Active Orders 02/10/21 02:23 CULTURE URINE [RM] Stat 02/10/21 02:41 Chest 1V Frontal [CR] Stat 02/10/21 03:10 cefTRIAXone [Rocephin] 1 gm Sodium Chloride 0.9% [Normal Saline AdvBag] 50 ml IV ONETIME 02/10/21 03:11 Admission Diagnosis [ADT] Stat Admission Status [Patient Status] [ADT] Routine
[2021-02-10 02:47] LABS: AMPHETAMINES,URINE NEGATIVE (NEGATIVE); BARBITURATES,URINE NEGATIVE (NEGATIVE); BENZODIAZEPINE,URINE NEGATIVE (NEGATIVE); MDMA (ECSTASY), URINE NEGATIVE (NEGATIVE); METHADONE,URINE NEGATIVE (NEGATIVE); METHAMPHETAMINES,URINE NEGATIVE (NEGATIVE); OPIATES,URINE NEGATIVE (NEGATIVE); OXYCODONE,URINE NEGATIVE (NEGATIVE); PHENCYCLIDINE,URINE NEGATIVE (NEGATIVE); TCA,URINE NEGATIVE (NEGATIVE)
[2021-02-10] MEDS ORDERED: cefTRIAXone 1 GM in Sodium Chloride 0.9% 50 ML IV ONE (03:10)
[2021-02-10] MEDS ORDERED: Potassium Chloride 10 MEQ Tab.ER PO ONE (03:10)
--- NOTE | 2021-02-10 03:25 | CR ---
PROCEDURE INFORMATION: Exam: XR Chest Exam date and time: 02/10/2021 3:01 AM Age: 30 years old Clinical indication: Other: Covis positive; Additional info: Chest pain TECHNIQUE: Imaging protocol: XR of the chest. Views: 1 view. COMPARISON: CT Abdomen Pelvis w Cont 07/19/2019 4:44 AM FINDINGS: Lungs: Bilateral perihilar reticulonodular and ground-glass opacities slightly more pronounced on the right. Pleural spaces: Unremarkable. No pleural effusion. No pneumothorax. Heart/Mediastinum: Unremarkable. No cardiomegaly. Bones/joints: Unremarkable. IMPRESSION: Bilateral perihilar reticulonodular and ground-glass opacities slightly more pronounced on the right.
[2021-02-10] MEDS ORDERED: Sodium Chloride 0.9% 0 ML ONE (03:28)
[2021-02-10] MEDS ORDERED: LORazepam 0.5 MG Tab PO PRN (03:32)
[2021-02-10] MEDS ORDERED: Acetaminophen 325 MG Tab PO PRN (03:33)
[2021-02-10] MEDS ORDERED: Ondansetron 4 MG/2 ML SDV IVPUSH PRN (03:34)
[2021-02-10] MEDS: NS + KCl 20mEq/L 1,000 ML IV SCH ×2 (04:17→18:42)
[2021-02-10] MEDS: Enoxaparin 40 MG/0.4 ML Syringe SUBCUT SCH (10:07)
[2021-02-10] MEDS: Dexamethasone 6 MG TABLET PO SCH (10:07)
[2021-02-10 10:19] LABS: ANION GAP 13.1 mEq/L (7-13); CHLORIDE,CL 106 mmol/L (98-107); SODIUM,NA 139 mmol/L (136-145)
--- NOTE | 2021-02-10 11:09 | PCM.HP ---
H&P History of Present Illness - General Date of Service: 02/10/21 Admit Problem/Dx: Admission Diagnosis/Problem Admission Diagnosis/Problem Hyponatremia Source of Information: Patient - History of Present Illness Initial Comments - Free Text/Narative: Presented with sob Her son was diagnosed with covid about 10 days ago. The patient developed nasal congestion, headache on 02/07/21 She lost smell, taste on 02/08 On 02/09 evening felt increasingly sob, associated moderate to severe anxiety, chest samantha and came to ER. Tested positive for covid in ER, Sodium and potassium was low. Chest Pain Score (Numeric/FACES): 0 - Related Data Allergies/Adverse Reactions: Allergies Allergy/AdvReac Type Severity Reaction Status Date / Time No Known Allergies Allergy Verified 02/10/21 01:24 Home Medications: Home Meds . 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: Musculoskeletal History: Reports: None Neurological History: Reports: None Psychiatric History: Reports: None Endocrine/Metabolic History: Reports: None Hematologic History: Reports: None Immunologic History: Reports: None Oncologic (Cancer) History: Reports: None Dermatologic History: Reports: None - Past Surgical History Female Surgical History: Reports: Section, D&C Social & Family History - Family History Family Medical History: No Pertinent Family History - Tobacco Use Tobacco Use Status *Q: Current Every Day Tobacco User Years of Tobacco use: 10 Packs/Tins Daily: 1 Second Hand Smoke Exposure: Yes - Caffeine Use Caffeine Use: Reports: Coffee, Energy Drinks, Soda - Alcohol Use Days Per Week of Alcohol Use: 2 Number of Drinks Per Day: 6 Total Drinks Per Week: 12 Date of Last Drink: 02/08/21 Time of Last Drink: 22:00 - Recreational Drug Use Recreational Drug Use: No H&P Review of Systems - Review of Systems: Review Of Systems: See Below General: Reports: Malaise, Weakness. Denies: Fever Pulmonary: Reports: Shortness of Breath, Cough. Denies: Wheezing, Sputum Cardiovascular: Reports: Chest Pain. Denies: Edema Gastrointestinal: Denies: Abdominal Pain Genitourinary: Denies: Dysuria Psychiatric: Denies: Confusion Exam - Exam Exam: See Below - Vital Signs Vital Signs: Last Vital Signs Temp 97.4 F 02/10/21 08:00 Pulse 74 02/10/21 08:00 Resp 18 02/10/21 08:00 BP 104/60 02/10/21 08:00 Pulse Ox 100 02/10/21 08:00 Weight: 179 lb 1.6 oz - Exam Quality Assessment: No: Supplemental Oxygen General: Alert, Oriented Neck: Supple Lungs: Clear to Auscultation, Normal Respiratory Effort Cardiovascular: Regular Rate, Regular Rhythm GI/Abdominal Exam: Non-Tender Extremities: No Pedal Edema Neuro Extensive - Mental Status: Alert, Oriented x3 Psychiatric: Alert, Normal Affect, Normal Mood - Patient Data Lab Results Last 24 hrs: Laboratory Results - last 24 hr 02/10/21 02/10/21 02/10/21 Range/Units 01:35 01:35 01:35 WBC 5.2 (5.0-10.0) 10^3/uL RBC 4.50 (4.2-5.4) 10^6/uL Hgb 13.1 (12.0-16.0) g/dL Hct 38.9 (37.0-47.0) % MCV 86.4 (80-100) fL MCH 29.1 (27.0-34.0) pg MCHC 33.7 (33.0-35.0) g/dL Plt Count 294 (150-450) 10^3/uL Neut % (Auto) 29.6 L (42.2-75.2) % Lymph % (Auto) 57.1 H (20.5-50.1) % [place] % (Auto) 9.2 H (2-8) % Eos % (Auto) 3.1 H (1.0-3.0) % Baso % (Auto) 1.0 (0.0-1.0) % PT 9.0 (9.0-12.0) SEC INR 0.9 (0.9-1.2) D-Dimer, Quantitative (0-400) ng/mL Sodium 122 L D (136-145) mmol/L Potassium 3.2 L (3.5-5.1) mmol/L Chloride 100 (98-107) mmol/L Carbon Dioxide 19 L (21-32) mmol/L Anion Gap 6.2 L (7-13) mEq/L BUN 8 (7-18) mg/dL Creatinine 0.70 (0.55-1.02) mg/dL Est Cr Clr Drug Dosing 93.79 mL/min Estimated GFR (MDRD) > 60 BUN/Creatinine Ratio 11.4 (No establ ref range) Glucose 100 H (70-99) mg/dL Calcium 8.8 (8.5-10.1) mg/dL Total Bilirubin 0.2 (0.2-1.0) mg/dL AST 19 (15-37) U/L ALT 33 (14-59) U/L Alkaline Phosphatase 129 H (46-116) U/L Troponin I High Sens < 4 (<=51) pg/mL C-Reactive Protein 2.2 H (0.0-0.9) mg/dL Total Protein 7.4 (6.4-8.2) g/dL Albumin 3.4 (3.4-5.0) g/dL Globulin 4.0 Albumin/Globulin Ratio 0.9 Urine Color (YELLOW) Urine Appearance (CLEAR) Urine pH (5.0-9.0) Ur Specific [place] (1.005-1.030) Urine Protein (NEGATIVE) Urine Glucose (UA) (NEGATIVE) Urine Ketones (NEGATIVE) Urine Occult Blood (NEGATIVE) Urine Nitrite (NEGATIVE) Urine Bilirubin (NEGATIVE) Urine Urobilinogen (0.2-1.0) mg/dL Ur Leukocyte Esterase (NEGATIVE) Urine RBC (0-5) /HPF Urine WBC (0-5/HPF) /HPF Ur Epithelial Cells (NOT SEEN) /HPF Amorphous Sediment (NOT SEEN) /HPF Urine Bacteria (0-FEW/HPF) /HPF Urine HCG, Qual Urine Opiates Screen (NEGATIVE) Ur Oxycodone Screen (NEGATIVE) Urine Methadone Screen (NEGATIVE) Ur Barbiturates Screen (NEGATIVE) U Tricyclic Antidepress (NEGATIVE) Ur Phencyclidine Scrn (NEGATIVE) Ur Amphetamine Screen (NEGATIVE) U Methamphetamines Scrn (NEGATIVE) Urine MDMA Screen (NEGATIVE) U Benzodiazepines Scrn (NEGATIVE) Urine Cocaine Screen (NEGATIVE) U Marijuana (THC) Screen (NEGATIVE) Ethyl Alcohol 0 (0) mg/dL SARS-CoV-2 RNA (CARMELA) (NEGATIVE) 1102/10/21 02/10/21 Range/Units 01:35 01:45 02:23 WBC (5.0-10.0) 10^3/uL RBC (4.2-5.4) 10^6/uL Hgb (12.0-16.0) g/dL Hct (37.0-47.0) % MCV (80-100) fL MCH (27.0-34.0) pg MCHC (33.0-35.0) g/dL Plt Count (150-450) 10^3/uL Neut % (Auto) (42.2-75.2) % Lymph % (Auto) (20.5-50.1) % [place] % (Auto) (2-8) % Eos % (Auto) (1.0-3.0) % Baso % (Auto) (0.0-1.0) % PT (9.0-12.0) SEC INR (0.9-1.2) D-Dimer, Quantitative 154 (0-400) ng/mL Sodium (136-145) mmol/L Potassium (3.5-5.1) mmol/L Chloride (98-107) mmol/L Carbon Dioxide (21-32) mmol/L Anion Gap (7-13) mEq/L BUN (7-18) mg/dL Creatinine (0.55-1.02) mg/dL Est Cr Clr Drug Dosing mL/min Estimated GFR (MDRD) BUN/Creatinine Ratio (No establ ref range) Glucose (70-99) mg/dL Calcium (8.5-10.1) mg/dL Total Bilirubin (0.2-1.0) mg/dL AST (15-37) U/L ALT (14-59) U/L Alkaline Phosphatase (46-116) U/L Troponin I High Sens (<=51) pg/mL C-Reactive Protein (0.0-0.9) mg/dL Total Protein (6.4-8.2) g/dL Albumin (3.4-5.0) g/dL Globulin Albumin/Globulin Ratio Urine Color (YELLOW) Urine Appearance (CLEAR) Urine pH (5.0-9.0) Ur Specific [place] (1.005-1.030) Urine Protein (NEGATIVE) Urine Glucose (UA) (NEGATIVE) Urine Ketones (NEGATIVE) Urine Occult Blood (NEGATIVE) Urine Nitrite (NEGATIVE) Urine Bilirubin (NEGATIVE) Urine Urobilinogen (0.2-1.0) mg/dL Ur Leukocyte Esterase (NEGATIVE) Urine RBC (0-5) /HPF Urine WBC (0-5/HPF) /HPF Ur Epithelial Cells (NOT SEEN) /HPF Amorphous Sediment (NOT SEEN) /HPF Urine Bacteria (0-FEW/HPF) /HPF Urine HCG, Qual Negative Urine Opiates Screen (NEGATIVE) Ur Oxycodone Screen (NEGATIVE) Urine Methadone Screen (NEGATIVE) Ur Barbiturates Screen (NEGATIVE) U Tricyclic Antidepress (NEGATIVE) Ur Phencyclidine Scrn (NEGATIVE) Ur Amphetamine Screen (NEGATIVE) U Methamphetamines Scrn (NEGATIVE) Urine MDMA Screen (NEGATIVE) U Benzodiazepines Scrn (NEGATIVE) Urine Cocaine Screen (NEGATIVE) U Marijuana (THC) Screen (NEGATIVE) Ethyl Alcohol (0) mg/dL SARS-CoV-2 RNA (CARMELA) Positive H (NEGATIVE) 02/10/21 02/10/21 02/10/21 Range/Units 02:23 02:23 09:53 WBC (5.0-10.0) 10^3/uL RBC (4.2-5.4) 10^6/uL Hgb (12.0-16.0) g/dL Hct (37.0-47.0) % MCV (80-100) fL MCH (27.0-34.0) pg MCHC (33.0-35.0) g/dL Plt Count (150-450) 10^3/uL Neut % (Auto) (42.2-75.2) % Lymph % (Auto) (20.5-50.1) % [place] % (Auto) (2-8) % Eos % (Auto) (1.0-3.0) % Baso % (Auto) (0.0-1.0) % PT (9.0-12.0) SEC INR (0.9-1.2) D-Dimer, Quantitative (0-400) ng/mL Sodium 139 D (136-145) mmol/L Potassium 4.1 (3.5-5.1) mmol/L Chloride 106 (98-107) mmol/L Carbon Dioxide 24 (21-32) mmol/L Anion Gap 13.1 H (7-13) mEq/L BUN 6 L (7-18) mg/dL Creatinine 0.60 (0.55-1.02) mg/dL Est Cr Clr Drug Dosing 109.42 mL/min Estimated GFR (MDRD) > 60 BUN/Creatinine Ratio (No establ ref range) Glucose 98 (70-99) mg/dL Calcium 7.8 L (8.5-10.1) mg/dL Total Bilirubin (0.2-1.0) mg/dL AST (15-37) U/L ALT (14-59) U/L Alkaline Phosphatase (46-116) U/L Troponin I High Sens (<=51) pg/mL C-Reactive Protein (0.0-0.9) mg/dL Total Protein (6.4-8.2) g/dL Albumin (3.4-5.0) g/dL Globulin Albumin/Globulin Ratio Urine Color Yellow (YELLOW) Urine Appearance Cloudy (CLEAR) Urine pH 7.5 (5.0-9.0) Ur Specific [place] 1.020 (1.005-1.030) Urine Protein Negative (NEGATIVE) Urine Glucose (UA) Negative (NEGATIVE) Urine Ketones Negative (NEGATIVE) Urine Occult Blood Negative (NEGATIVE) Urine Nitrite Positive H (NEGATIVE) Urine Bilirubin Negative (NEGATIVE) Urine Urobilinogen 0.2 (0.2-1.0) mg/dL Ur Leukocyte Esterase Negative (NEGATIVE) Urine RBC Not seen (0-5) /HPF Urine WBC 0-5 (0-5/HPF) /HPF Ur Epithelial Cells Moderate H (NOT SEEN) /HPF Amorphous Sediment Many H (NOT SEEN) /HPF Urine Bacteria Many H (0-FEW/HPF) /HPF Urine HCG, Qual Urine Opiates Screen Negative (NEGATIVE) Ur Oxycodone Screen Negative (NEGATIVE) Urine Methadone Screen Negative (NEGATIVE) Ur Barbiturates Screen Negative (NEGATIVE) U Tricyclic Antidepress Negative (NEGATIVE) Ur Phencyclidine Scrn Negative (NEGATIVE) Ur Amphetamine Screen Negative (NEGATIVE) U Methamphetamines Scrn Negative (NEGATIVE) Urine MDMA Screen Negative (NEGATIVE) U Benzodiazepines Scrn Negative (NEGATIVE) Urine Cocaine Screen Negative (NEGATIVE) U Marijuana (THC) Screen Negative (NEGATIVE) Ethyl Alcohol (0) mg/dL SARS-CoV-2 RNA (CARMELA) (NEGATIVE) Result Diagrams: 02/10/21 01:35 02/10/21 09:53 - Problem List (1) COVID-19 SNOMED Code(s): 869917286 ICD Code: U07.1 - COVID-19 Status: Acute Current Visit: No (2) Hyponatremia SNOMED Code(s): 49793760 ICD Code: E87.1 - HYPO-OSMOLALITY AND HYPONATREMIA Status: Acute Current Visit: No (3) UTI (urinary tract infection) SNOMED Code(s): 11938324 ICD Code: N39.0 - URINARY TRACT INFECTION, SITE NOT SPECIFIED Status: Acute Current Visit: No Qualifiers: Urinary tract infection type: acute cystitis Hematuria presence: without hematuria Qualified Code(s): N30.00 - Acute cystitis without hematuria Problem List Initiated/Reviewed/Updated: Yes Orders Last 24hrs: Active Orders 24 hr Category Date Time Status Admission Diagnosis [ADT] Stat ADT 02/10/21 03:11 Ordered Admission Status [Patient Status] [ADT] Routine ADT 02/10/21 03:11 Active Activity as Tolerated [RC] .Routine Care 02/10/21 03:31 Active Vital Signs [RC] 04,08,12,16,20,00 Care 02/10/21 03:40 Active Regular Diet [DIET] Diet 02/10/21 Breakfast Active BASIC METABOLIC PANEL,BMP [CHEM] AM Lab 02/11/21 05:11 Ordered BASIC METABOLIC PANEL,BMP [CHEM] AM Lab 02/12/21 05:11 Ordered BASIC METABOLIC PANEL,BMP [CHEM] AM Lab 02/13/21 05:11 Ordered BASIC METABOLIC PANEL,BMP [CHEM] AM Lab 02/14/21 05:11 Ordered BASIC METABOLIC PANEL,BMP [CHEM] AM Lab 02/15/21 05:11 Ordered CBC WITH AUTO DIFF [HEME] AM Lab 02/11/21 05:11 Ordered CBC WITH AUTO DIFF [HEME] AM Lab 02/12/21 05:11 Ordered CBC WITH AUTO DIFF [HEME] AM Lab 02/13/21 05:11 Ordered CBC WITH AUTO DIFF [HEME] AM Lab 02/14/21 05:11 Ordered CBC WITH AUTO DIFF [HEME] AM Lab 02/15/21 05:11 Ordered CULTURE URINE [RM] Stat Lab 02/10/21 02:23 Received DD [D-DIMER QUANTITATIVE] [COAG] AM Lab 02/11/21 05:11 Ordered DD [D-DIMER QUANTITATIVE] [COAG] AM Lab 02/12/21 05:11 Ordered DD [D-DIMER QUANTITATIVE] [COAG] AM Lab 02/13/21 05:11 Ordered DD [D-DIMER QUANTITATIVE] [COAG] AM Lab 02/14/21 05:11 Ordered HEPATIC FUNCTION PANEL,[facility] [CHEM] AM Lab 02/11/21 05:11 Ordered HEPATIC FUNCTION PANEL,[facility] [CHEM] AM Lab 02/12/21 05:11 Ordered HEPATIC FUNCTION PANEL,[facility] [CHEM] AM Lab 02/13/21 05:11 Ordered HEPATIC FUNCTION PANEL,[facility] [CHEM] AM Lab 02/14/21 05:11 Ordered Acetaminophen [TylenoL] Med 02/10/21 03:33 Active 650 mg PO Q4H PRN Enoxaparin [Lovenox] Med 02/10/21 09:00 Active 40 mg SUBCUT DAILY LORazepam [Ativan] Med 02/10/21 03:32 Active 0.5 mg PO Q4H PRN NS + KCl 20mEq/L [Normal Saline with 20 mEq KCl] 1,000 Med 02/10/21 03:45 Active ml IV ASDIRECTED Ondansetron [Zofran] Med 02/10/21 03:34 Active 4 mg IVPUSH Q6H PRN cefTRIAXone [Rocephin] 1 gm Med 02/10/21 21:00 Active Sodium Chloride 0.9% [Normal Saline AdvBag] 50 ml IV Q24H dexAMETHasone Med 02/10/21 10:00 Active 6 mg PO DAILY@0800 Isolation [COMM] Routine Oth 02/10/21 04:00 Active Code Status [Resuscitation Status] Routine Resus Stat 02/10/21 03:30 Ordered Medication Orders Acetaminophen (Acetaminophen 325 Mg Tab) 650 mg PO Q4H PRN PRN Reason: Pain (mild 1-3) Dexamethasone (Dexamethasone 6 Mg Tablet) 6 mg PO DAILY@0800 [facility] Last Admin: 02/10/21 10:07 Dose: 6 mg Documented by: KACI Enoxaparin Sodium (Enoxaparin 40 Mg/0.4 Ml Syringe) 40 mg SUBCUT DAILY [facility] Last Admin: 02/10/21 10:07 Dose: 40 mg Documented by: KACI Potassium Chloride/Sodium Chloride (Normal Saline With 20 Meq Kcl) 1,000 mls @ 75 mls/hr IV ASDIRECTED [facility] Last Admin: 02/10/21 04:17 Dose: 75 mls/hr Documented by: BART Ceftriaxone Sodium 1 gm/ (Sodium Chloride) 50 mls @ 100 mls/hr IV Q24H BRITTANEY Lorazepam (Lorazepam 0.5 Mg Tab) 0.5 mg PO Q4H PRN PRN Reason: Anxiety Last Admin: 02/10/21 04:18 Dose: 0.5 mg Documented by: BART Ondansetron HCl (Ondansetron 4 Mg/2 Ml Sdv) 4 mg IVPUSH Q6H PRN PRN Reason: Nausea/Vomiting Assessment/Plan Comment:: Presented with sob Her son was diagnosed with covid about 10 days ago. The patient developed nasal congestion, headache on 02/07/21 She lost smell, taste on 02/08 On 02/09 evening felt increasingly sob, associated moderate to severe anxiety, chest samantha and came to ER. Tested positive for covid in ER, Sodium and potassium was low. Acute covid 19 pneumonia Based on CXR 02/09 Vaccination status: Symptom onset: about 02/07/21 Covid test positive: 02/09/21 No hypoxemia Treat with dexamethasone Hold remdesivir Treat with mvi /vit d Follow daily cbc, bmp, trop, procal, ddimer Consider BAM tx if discharged soon discharge Follow for Acute hypoxemic respiratory failure Currently does not require oxygen Will supplement oxygen as needed Evaluations for concurrent bacterial pneumonia: Procalcitonin: pending Hold Abx for now Evaluations for thrombotic complications Ddimer: low Prophylaxis: use standard dose lovenox Hyponatremia Likely due to dehydration with viral syndrome Given IVF Recheck sodium Hypokalemia Replace K and recheck in AM Abnormal ua With bacteria, + nitrite Urine cx: pending Treat empirically with ceftriaxone
[2021-02-10] MEDS: Multivitamins, Therapeutic with Minerals Tab PO SCH (14:53)
[2021-02-10] MEDS: Cholecalciferol (Vitamin D3) 25 MCG Tab PO SCH (14:53)
[2021-02-10] MEDS ORDERED: cefTRIAXone 1 GM in Sodium Chloride 0.9% 50 ML IV SCH (21:00)
[2021-02-11 07:17] LABS: ANION GAP 13.1 mEq/L (7-13); CHLORIDE,CL 105 mmol/L (98-107); SODIUM,NA 138 mmol/L (136-145)
[2021-02-11 07:40] VITALS: BP 109/63; PULSE 70
[2021-02-11] MEDS: Multivitamins, Therapeutic with Minerals Tab PO SCH (08:41)
[2021-02-11] MEDS: Dexamethasone 6 MG TABLET PO SCH (08:41)
[2021-02-11] MEDS: Cholecalciferol (Vitamin D3) 25 MCG Tab PO SCH (08:41)
[2021-02-11] MEDS: Enoxaparin 40 MG/0.4 ML Syringe SUBCUT SCH (08:42)
--- NOTE | 2021-02-11 10:32 | PCM.DCSUM1 ---
Discharge Summary - Hospital Course Free Text/Narrative:: Presented with sob Her son was diagnosed with covid about 10 days ago. The patient developed nasal congestion, headache on 02/07/21 She lost smell, taste on 02/08 On 02/09 evening felt increasingly sob, associated moderate to severe anxiety, chest pain and came to ER. Tested positive for covid in ER, Sodium and potassium was low. Acute covid 19 pneumonia Based on CXR 02/09 Symptom onset: about 02/07/21 Covid test positive: 02/09/21 No hypoxemia Treat with dexamethasone Treat with mvi /vit d she did not want to receive BAM tx after discharged Follow for Acute hypoxemic respiratory failure Currently does not require oxygen Evaluations for concurrent bacterial pneumonia: Procalcitonin: pending Hold Abx for now Evaluations for thrombotic complications Ddimer: low dvt prophylaxis after discharge - Aspirin Hyponatremia Likely due to dehydration with viral syndrome Given IVF resolved Hypokalemia replaced Abnormal ua With bacteria, + nitrite Urine cx: pending Treated empirically with ceftriaxone finish cefazolin Diagnosis: Stroke: No - Discharge Data Discharge Date: 02/11/21 Discharge Disposition: Home, Self-Care 01 Condition: Good - Referral to Home Health Primary Care Physician: PCP None - Discharge Diagnosis/Problem(s) (1) COVID-19 SNOMED Code(s): 471049510 ICD Code: U07.1 - COVID-19 Status: Acute Current Visit: No (2) Hyponatremia SNOMED Code(s): 51852215 ICD Code: E87.1 - HYPO-OSMOLALITY AND HYPONATREMIA Status: Acute Current Visit: No (3) UTI (urinary tract infection) SNOMED Code(s): 93596234 ICD Code: N39.0 - URINARY TRACT INFECTION, SITE NOT SPECIFIED Status: Acute Current Visit: No Qualifiers: Urinary tract infection type: acute cystitis Hematuria presence: without hematuria Qualified Code(s): N30.00 - Acute cystitis without hematuria - Patient Instructions Diet: Heart Healthy Diet Activity: As Tolerated - Discharge Plan *PRESCRIPTION DRUG MONITORING PROGRAM REVIEWED*: No *COPY OF PRESCRIPTION DRUG MONITORING REPORT IN PATIENT [place]: No Prescriptions/Med Rec: dexAMETHasone [Dexamethasone] 6 mg PO DAILY #30 tab cephALEXin [Keflex] 500 mg PO TID #9 cap Cholecalciferol (Vitamin D3) [Vitamin D3] 25 mcg PO DAILY #14 tablet Multivitamins/Minerals [Vitamins and Minerals] 1 tab PO WITHBREAKFAST #30 tablet Home Medications: Home Meds Cholecalciferol (Vitamin D3) [Vitamin D3] 25 mcg PO DAILY #14 tablet 02/11/21 [Rx] Multivitamins/Minerals [Vitamins and Minerals] 1 tab PO WITHBREAKFAST #30 tablet 02/11/21 [Rx] cephALEXin [Keflex] 500 mg PO TID #9 cap 02/11/21 [Rx] dexAMETHasone [Dexamethasone] 6 mg PO DAILY #30 tab 02/11/21 [Rx] Oxygen Therapy Mode: Room Air Patient Handouts: COVID-19 Frequently Asked Questions, Hyponatremia, [id number], 10 Things You Can Do to Manage Your COVID-19 Symptoms at Home - [facility] (10/11/2020) Referrals: Rito Dumont, [employer] [Ordering Only Provider] - (in 3-4 days ) - Discharge Summary/Plan Comment DC Time >30 min.: No Total # of Minutes for Discharge Time: 20 min - General Info Date of Service: 02/11/21 Functional Status: Reports: Pain Controlled, Tolerating Diet, Ambulating - Review of Systems General: Denies: Fever, Weakness Pulmonary: Denies: Shortness of Breath, Cough, Wheezing Cardiovascular: Denies: Chest Pain, Edema Gastrointestinal: Reports: Other (taste feeling returned). Denies: Abdominal Pain Neurological: Denies: Confusion Psychiatric: Denies: Anxiety - Patient Data Vitals - Most Recent: Last Vital Signs Temp 98.1 F 02/11/21 07:39 Pulse 70 02/11/21 07:39 Resp 23 H 02/11/21 07:39 BP 109/63 02/11/21 07:39 Pulse Ox 94 L 02/11/21 07:39 Weight - Most Recent: 179 lb 1.6 oz I&O - Last 24 hours: Intake & Output 02/10/21 02/11/21 02/11/21 22:59 06:59 14:59 Intake Total 800 300 Balance 800 300 Lab Results - Last 24 hrs: Laboratory Results - last 24 hr 02/11/21 02/11/21 02/11/21 Range/Units 06:35 06:35 06:35 WBC 7.9 (5.0-10.0) 10^3/uL RBC 4.25 (4.2-5.4) 10^6/uL Hgb 12.1 (12.0-16.0) g/dL Hct 37.6 (37.0-47.0) % MCV 88.5 (80-100) fL MCH 28.5 (27.0-34.0) pg MCHC 32.2 L (33.0-35.0) g/dL Plt Count 276 (150-450) 10^3/uL Neut % (Auto) 70.7 (42.2-75.2) % Lymph % (Auto) 23.1 (20.5-50.1) % [place] % (Auto) 5.8 (2-8) % Eos % (Auto) 0.1 L (1.0-3.0) % Baso % (Auto) 0.3 (0.0-1.0) % D-Dimer, Quantitative 161 (0-400) ng/mL Sodium 138 (136-145) mmol/L Potassium 4.1 (3.5-5.1) mmol/L Chloride 105 (98-107) mmol/L Carbon Dioxide 24 (21-32) mmol/L Anion Gap 13.1 H (7-13) mEq/L BUN 8 (7-18) mg/dL Creatinine 0.59 (0.55-1.02) mg/dL Est Cr Clr Drug Dosing 111.27 mL/min Estimated GFR (MDRD) > 60 Glucose 122 H (70-99) mg/dL Calcium 8.5 (8.5-10.1) mg/dL Total Bilirubin 0.2 (0.2-1.0) mg/dL Direct Bilirubin 0.1 (0.0-0.2) mg/dL Indirect Bilirubin 0.1 AST 13 L (15-37) U/L ALT 30 (14-59) U/L Alkaline Phosphatase 95 (46-116) U/L Total Protein 6.9 (6.4-8.2) g/dL Albumin 3.1 L (3.4-5.0) g/dL Globulin 3.8 Albumin/Globulin Ratio 0.82 DAMION Results - Last 24 hrs: Microbiology 02/10/21 02:23 Urine Culture - Preliminary Urine, Voided MIXED POSITIVE CHARLENE DAY 1 Med Orders - Current: Current Medications Acetaminophen (Acetaminophen 325 Mg Tab) 650 mg PO Q4H PRN PRN Reason: Pain (mild 1-3) Cholecalciferol (Cholecalciferol (Vitamin D3) 25 Mcg Tab) 25 mcg PO DAILY [facility] Last Admin: 02/11/21 08:41 Dose: 25 mcg Documented by: Dexamethasone (Dexamethasone 6 Mg Tablet) 6 mg PO DAILY@0800 [facility] Last Admin: 02/11/21 08:41 Dose: 6 mg Documented by: Enoxaparin Sodium (Enoxaparin 40 Mg/0.4 Ml Syringe) 40 mg SUBCUT DAILY [facility] Last Admin: 02/11/21 08:42 Dose: Not Given Documented by: Potassium Chloride/Sodium Chloride (Normal Saline With 20 Meq Kcl) 1,000 mls @ 50 mls/hr IV ASDIRECTED [facility] Last Admin: 02/10/21 18:42 Dose: 75 mls/hr Documented by: Ceftriaxone Sodium 1 gm/ (Sodium Chloride) 50 mls @ 100 mls/hr IV Q24H [facility] Last Admin: 02/10/21 20:04 Dose: 100 mls/hr Documented by: Lorazepam (Lorazepam 0.5 Mg Tab) 0.5 mg PO Q4H PRN PRN Reason: Anxiety Last Admin: 02/10/21 04:18 Dose: 0.5 mg Documented by: Multivitamins/Minerals (Multivitamins, Therapeutic With Minerals Tab) 1 tab PO WITHBREAKFAST [facility] Last Admin: 02/11/21 08:41 Dose: 1 tab Documented by: Ondansetron HCl (Ondansetron 4 Mg/2 Ml Sdv) 4 mg IVPUSH Q6H PRN PRN Reason: Nausea/Vomiting Discontinued Medications Sodium Chloride (Normal Saline) 1,000 mls @ 999 mls/hr IV .BOLUS ONE Stop: 02/10/21 03:11 Last Admin: 02/10/21 02:29 Dose: 999 mls/hr Documented by: Ceftriaxone Sodium 1 gm/ (Sodium Chloride) 50 mls @ 100 mls/hr IV ONETIME ONE Stop: 02/10/21 03:39 Last Admin: 02/10/21 03:48 Dose: 100 mls/hr Documented by: Sodium Chloride (Normal Saline Advbag) Confirm Administered Dose 50 mls @ as directed .ROUTE .STK-MED ONE Stop: 02/10/21 03:29 Last Admin: 02/10/21 11:09 Dose: Not Given Documented by: Lorazepam (Lorazepam 2 Mg/Ml Sdv) 0.5 mg IVPUSH ONETIME ONE Stop: 02/10/21 01:34 Last Admin: 02/10/21 01:39 Dose: 0.5 mg Documented by: Lorazepam (Lorazepam 2 Mg/Ml Sdv) 0.5 mg IVPUSH ONETIME ONE Stop: 02/10/21 01:56 Last Admin: 02/10/21 02:08 Dose: 0.5 mg Documented by: Potassium Chloride (Potassium Chloride 10 Meq Tab.Er) 40 meq PO ONETIME ONE Stop: 02/10/21 03:11 Last Admin: 02/10/21 03:31 Dose: 40 meq Documented by: - Exam Quality Assessment: Denies: Supplemental Oxygen General: Reports: Alert, Oriented Neck: Reports: Supple Lungs: Reports: Clear to Auscultation, Normal Respiratory Effort Cardiovascular: Reports: Regular Rate, Regular Rhythm GI/Abdominal Exam: Normal Bowel Sounds, Soft, Non-Tender Extremities: No Pedal Edema
[2021-02-11] MEDS ORDERED: Aspirin 325 MG Tab PO SCH (10:45)
== END 2021-02-11 11:00 | disposition home or self-care (01) | DRG 137 ==
LOC: DL.ED 01:18 → DL.MS 03:11
PROVIDERS: ADMIT Internal Medicine; ATTEND Internal Medicine
PROC: 8E0ZXY6 Isolation (ICD-10-PCS; principal; 2021-02-11)
PROC: 3E0DX3Z Introduction of Anti-inflammatory into Mouth and Pharynx, External Approach (ICD-10-PCS; principal; 2021-02-11)
DX: U07.1 COVID-19 (principal); J12.82 Pneumonia due to coronavirus disease 2019; J96.01 Acute respiratory failure with hypoxia; E87.1 Hypo-osmolality and hyponatremia; E86.0 Dehydration; E87.6 Hypokalemia; N30.00 Acute cystitis without hematuria; F17.210 Nicotine dependence, cigarettes, uncomplicated; F41.9 Anxiety disorder, unspecified
CPT/HCPCS: 36415; 71045; 80048; 80053; 80076; 80305-QW; 80307; 81001; 81025; 84484; 85025; 85379; 85610; 86140; 87086; 93005; 96374; 99285-25; A9270-GY; J0696; J1650; J2060; J3480; J7030; J8540; U0002

== ENCOUNTER 2023-05-14 16:16 | Day surgery (SDC) | payer BC, MEDICAID ==
[~2023-05-14 16:16] MED LIST: Lactated Ringers 1,000 ML IV SCH; Oxytocin/Normal Saline 30 UNIT/500 ML BAG IV SCH
[2023-05-14] MEDS ORDERED: Doxycycline 100 MG Vial IV ONE (16:17)
[2023-05-14] MEDS: Doxycycline 200 MG in Sodium Chloride 0.9% 250 ML IV ONE (16:30)
[2023-05-14] MEDS: Lactated Ringers 1,000 ML IV SCH (16:37)
[2023-05-14] MEDS: Sodium Chloride 0.9% 10 ML Syringe FLUSH PRN (16:38)
[2023-05-14] MEDS ORDERED: Misoprostol 400 MCG (4 X 100 MCG TAB) ONE (16:48)
[2023-05-14 16:51] LABS: BASOPHILS PERCENT AUTO 0.8 % (0.0-1.0); EOSINOPHILS PERCENT AUTO 3.2 % (1.0-3.0); HEMATOCRIT 40.5 % (37.0-47.0); HEMOGLOBIN 13.4 g/dL (12.0-16.0); MEAN CORPUSCULAR HEMOGLOBIN 28.1 pg (27.0-34.0); MEAN CORPUSCULAR HGB CONC 33.1 g/dL (33.0-35.0); MEAN CORPUSCULAR VOLUME 84.9 fL (80-100); MONOCYTES PERCENT AUTO 5.9 % (2-8); NEUTROPHILS PERCENT AUTO 59.1 % (42.2-75.2); PLATELET COUNT,PLT 364 10^3/uL (150-450); RED BLOOD CELL COUNT 4.77 10^6/uL (4.2-5.4)
[2023-05-14 21:36] VITALS: BP 113/61; PULSE 73
== END 2023-05-14 22:05 | disposition home or self-care (01) ==
LOC: DL.SDS 16:16
PROVIDERS: ATTEND Family Medicine
DX: O03.4 Incomplete spontaneous abortion without complication (principal); F32.9 Major depressive disorder, single episode, unspecified; Z86.16 Personal history of COVID-19; Z79.899 Other long term (current) drug therapy
CPT/HCPCS: 36415; 76857; 85025; 86850; 86900; 86901; J3490; J7050; J7120